=== PATIENT | male | born 1980 | race African-American/Black ===

== ENCOUNTER 2017-01-04 18:42 | Inpatient (IN) | payer OTHER ==
--- NOTE | ~2017-01-04 | DS ---
Unit #: [id number] #: [id number] Patient: CARYL ASTUDILLO [id number] [facility] [address] [place] [address] [id number] MR#: [id number] NAME: CARYL ASTUDILLO ROOM: [facility] Age: 36 Sex: M Admission Date: 01/04/2017 : 1980 Discharge Date: 01/16/2017 Attending Physician: Diya Bhat M.D. Primary Care Physician: Primary Care Physician No DISCHARGE SUMMARY IDENTIFYING DATA Mr. Astudillo is a 26-year-old single male, who was self-referred to the hospital. DISCHARGE DIAGNOSES Psychiatric: Major depressive disorder, recurrent, moderate, with psychosis; cocaine abuse, moderate. Medical: Human immunodeficiency virus. Stressors: Moderate psychosocial stressors. HISTORY OF PRESENT ILLNESS Please see initial psychiatric evaluation for details. PAST PSYCHIATRIC HISTORY Please see initial psychiatric evaluation for details. PAST MEDICAL HISTORY Please see initial psychiatric evaluation for details. HOSPITAL COURSE The patient was [facility] and was oriented to the hospital environment. Routine p.r.n. medications were initiated, and he was started back on his home medications and Celexa and Zyprexa were initiated and he was seen to be exhibiting some acute psychosis and was initially refusing to comply with medication, though he was slowly able to start showing better compliance with improved tolerability and therapeutic response to the medication and as such, it was decided that he will be discharged home and will continue treatment on an outpatient basis. DISCHARGE MEDICATIONS Celexa 20 mg a day for depression and Zyprexa 10 mg at bedtime for psychosis. DISCHARGE CONDITION Stable. PROGNOSIS Fair. Dictated by... Diya Bhat M.D. Unit #: [id number] #: [id number] Patient: CARYL ASTUDILLO IAA/modl TD: 01/16/2017 08:24 JOB #: [id number] DISCHARGE SUMMARY X Diya Bhat MD X DISCHARGE SUMMARY
--- NOTE | ~2017-01-04 | PN ---
Unit #: [id number] #: [id number] Patient: CARYL ASTUDILLO [id number] [facility] [address] [place] [address] [id number] MR#: [id number] NAME: CARYL ASTUDILLO ROOM: P251 Age: 36 Sex: M Admission Date: 01/04/2017 : 1980 Attending Physician: Diya Bhat M.D. Admitting Physician: Diya Bhat M.D. Primary Care Physician: Primary Care Physician Riri MARIE NOTES DATE OF SERVICE: 01/08/2017 SUBJECTIVE Mr. Astudillo is a 36-year-old male, who was seen today and chart was reviewed and the case was discussed with the staff, who reports that the patient has not been doing good as he has been very seclusive to himself and he has been acutely psychotic with bizarre behavior and disorganized thought and speech and unkempt and disheveled and was seclusive to himself, and he has been urinating and defecating in the sink in his room and the whole room smells of fecal matter and it is hard even to get into his room and he had been having difficulty keeping himself clean and following any directions. He also has not been able to carry on any meaningful conversation. MENTAL STATUS EXAMINATION Young male, who was casually dressed with poor personal hygiene, appears to be in no acute distress or discomfort. He was awake and alert with impaired attention and concentration. His mood was anxious with a congruent affect. His speech was slow and restricted in content. His thought processes were disorganized with some looseness of association. His insight and judgment remain significantly impaired. TREATMENT PLAN 1. We will continue him on his current medications and treatment protocol. We will monitor his response to medications and make further adjustments as needed. 2. We will continue to follow up. Dictated by... Magdalena Lundberg/lindsay TD: 01/10/2017 11:22 JOB #: [id number] Unit #: [id number] #: [id number] Patient: CARYL ASTUDILLO PROGRESS NOTES X Diya Bhat MD
--- NOTE | ~2017-01-04 | PN ---
Unit #: [id number] #: [id number] Patient: CARYL ASTUDILLO [id number] [facility] [address] [place] [address] [id number] I MR#: [id number] NAME: CARYL ASTUDILLO ROOM: P251 Age: 36 Sex: M Admission Date: 01/04/2017 : 1980 Attending Physician: Diya Bhat M.D. Admitting Physician: Diya Bhat M.D. Primary Care Physician: Primary Care Physician Riri MARIE NOTES DATE OF SERVICE: 01/10/2017 SUBJECTIVE Mr. Astudillo is a 36-year-old, male, who was seen today and chart was reviewed, and case was discussed with the staff, who reports the patient has been acutely psychotic with bizarre behavior, and was unkempt, disheveled and seclusive to himself and has not been able to participate very much in treatment related activities including group therapy. Meanwhile, he has been taking medications at times and is selectively compliant and therefore has not been able to show an effective therapeutic response. MENTAL STATUS EXAMINATION Young male, who was casually dressed with fair personal hygiene, who appears to be in no acute distress or discomfort. He was awake and alert on interaction with intact orientation. His mood was anxious with a congruent affect. He denies suicidal or homicidal ideation. His insight and judgment remain significantly impaired. TREATMENT PLAN 1. We will continue him on his current medications and treatment protocol. We will monitor his response to medications and make further adjustments as needed. 2. We will continue to follow up. Dictated by... Magdalena Lundberg/lindsay TD: 01/11/2017 02:32 JOB #: [id number] Unit #: [id number] #: [id number] Patient: CARYL ASTUDILLO YOVANNY PROGRESS NOTES X Diya Bhat MD PROGRESS NOTE
--- NOTE | ~2017-01-04 | HP ---
Unit #: [id number] #: [id number] Patient: CARYL ERNANDEZ [id number] [facility] [address] [place] [address] [id number] I MR#: [id number] NAME: CARYL ERNANDEZ ROOM: P266 Age: 36 Sex: M Admission Date: 01/04/2017 : 1980 Attending Physician: Diya Bhat M.D. Admitting Physician: Diya Bhat M.D. Primary Care Physician: Primary Care Physician No HISTORY AND PHYSICAL HISTORY OF PRESENT ILLNESS The patient is a 36-year-old male, who has been admitted to [facility] for suicidal ideations. PAST MEDICAL HISTORY 1. HIV. 2. Alcohol use. 3. Polysubstance abuse. PAST SURGICAL HISTORY 1. Left wrist surgery. 2. Bilateral ankle surgery. 3. Possible stomach surgery. ALLERGIES Haldol. HOME MEDICATIONS 1. Motrin 800 mg p.o. q.8h p.r.n. pain 2. Atovaquone 75/5 mL p.o. daily 3. Triumeq one tablet p.o. daily SOCIAL HISTORY The patient endorses tobacco and occasionally alcohol, he does admit to using crack cocaine, he is homeless. FAMILY HISTORY Medically noncontributory. REVIEW OF SYSTEMS CONSTITUTIONAL: Denies fever or chills. HEENT: Denies any sore throat, ear pain or runny nose. CARDIOVASCULAR: Denies chest pain, irregular heart rhythm or palpitations. CHEST: Denies shortness of breath or cough. No hemoptysis. GASTROINTESTINAL: Denies nausea, vomiting, diarrhea or chronic constipation. ENDOCRINE: Denies history of increased thirst or urination. No recent significant weight loss or gain. GENITOURINARY: Denies dysuria, frequency, or hematuria. SKIN: Denies any rashes. HEMATOLOGIC: Denies increased bleeding or bruising. MUSCULOSKELETAL: Denies any hot, swollen joints. No generalized muscle pain. Unit #: [id number] #: [id number] Patient: CARYL ERNANDEZ NEUROLOGIC: Denies problems with vision or speech. No frequent, severe headaches. No numbness, tingling or weakness in any extremities. Denies loss of bladder or bowel control. PHYSICAL EXAMINATION GENERAL APPEARANCE: The patient is awake, alert, and in no acute distress. VITAL SIGNS: Temperature 98.7, heart rate 86, respirations 18, and blood pressure 142/98. WEIGHT: 150 pounds. HEIGHT: 6 feet 1 inch. HEENT: Head: Normocephalic. The patient does have a blackened right eye. Pupils are equal, round, and reactive. Extraocular movements are intact. No discharge from ears or nares. NECK: Supple. Trachea is midline. HEART: Regular rate and rhythm. LUNGS: Clear. ABDOMEN: Soft and nontender. Nondistended. : Not done. SKIN: Warm, dry, and no unusual rashes or lesions. EXTREMITIES: No clubbing, edema, or cyanosis. NEUROLOGIC: Within normal limits. Cranial Nerves: II through XII: Intact. No focal deficits. Sensory and Motor Function: Grossly normal. Motor: moves all extremities well. Coordination: Gait is normal. Deep Tendon Reflexes: Intact. IMPRESSION Psychiatric admission. RECOMMENDATIONS Psychiatric, per psychiatrist. MEDICAL I see no contraindications to participating in facility's activities. MEDICAL PROGNOSIS Fair. MEDICAL CONDITION Stable. Dictated by... Lakisha Phillips A.P.R.N. AM/alireza TD: 01/05/2017 08:32 JOB #: [id number] Unit #: [id number] #: [id number] Patient: CARYL ERNANDEZ HISTORY AND PHYSICAL X Lakisha Phillips APRN X HISTORY AND PHYSICAL
--- NOTE | ~2017-01-04 | CO ---
Unit #: [id number] #: [id number] Patient: CARYL ERNANDEZ [id number] [place] [address] [id number] I MR#: [id number] NAME: CARYL ERNANDEZ ROOM: P251 Age: 36 Sex: M Admission Date: 01/04/2017 : 1980 Attending Physician: Diya Bhat M.D. Primary Care Physician: Primary Care Physician No Consultation Date: 01/09/2017 CONSULTATION REPORT SUBJECTIVE Caryl is a 36-year-old, admitted to [address] [place] [address] with depression, verbalizing wanting to hurt himself. He has a history of HIV, alcohol abuse, and poly illicit substance use. We have been asked to see him for a "possible UTI." The patient has no complaints of dysuria, urgency, or frequency. He has had no recorded increased temperatures. DIAGNOSTIC STUDIES LABORATORY RESULTS: Admission urinalysis; negative for bacteria with 10 to 25 wbc's. PLAN Plan will be to encourage fluids. No Rx at this time. Dictated by... Carmen Ma P.A.-C. for Magdalena Gonzalez/lindsay TD: 01/11/2017 22:43 JOB #: [id number] CONSULTATION REPORT X Carmen Ma X CONSULTATION REPORT
--- NOTE | ~2017-01-04 | PN ---
Unit #: [id number] #: [id number] Patient: CARYL ASTUDILLO [id number] [facility] [address] [place] [address] [id number] MR#: [id number] NAME: CARYL ASTUDILLO ROOM: P251 Age: 36 Sex: M Admission Date: 01/04/2017 : 1980 Attending Physician: Diya Bhat M.D. Admitting Physician: Diya Bhat M.D. Primary Care Physician: Primary Care Physician Riri MARIE NOTES DATE OF SERVICE: 01/13/2017 SUBJECTIVE Mr. Astudillo is a 36-year-old male with mood disorder and psychosis, who was seen today and chart was reviewed and the case was discussed with the staff. He remains anxious, withdrawn, disorganized, unkempt, and disheveled and he has bizarre behavior and very seclusive to himself and not interacting or socializing very much, though he has not shown any agitation or aggression. Meanwhile, he has been taking the medications and tolerating them fairly well. MENTAL STATUS EXAMINATION Young male, who was casually dressed with fair personal hygiene, who appears to be in no acute distress or discomfort. He was awake and alert with impaired attention and concentration. His mood was anxious with a congruent affect. His speech was slow and restricted in content. His insight and judgment remain significantly impaired. TREATMENT PLAN 1. We will continue him on his current medications and treatment protocol and we will monitor his response to the medications and make further adjustments as needed. 2. We will continue to follow up. Dictated by... Magdalena Lundberg/lindsay TD: 01/13/2017 13:24 JOB #: [id number] [facility] PROGRESS NOTES X Diya Bhat MD PROGRESS NOTE
--- NOTE | ~2017-01-04 | PN ---
Unit #: [id number] #: [id number] Patient: CARYL ASTUDILLO [id number] [facility] [address] [place] [address] [id number] I MR#: [id number] NAME: CARYL ASTUDILLO ROOM: P251 Age: 36 Sex: M Admission Date: 01/04/2017 : 1980 Attending Physician: Diya Bhat M.D. Admitting Physician: Diya Bhat M.D. Primary Care Physician: Primary Care Physician Riri MARIE NOTES DATE OF SERVICE: 01/07/2017 SUBJECTIVE Mr. Astudillo is a 36-year-old male who was seen today and chart was reviewed, and case was discussed with the staff. He has been anxious, disorganized, unkempt, disheveled and was lying in a bed and the whole room was smelling of bad smell and staff informed me that he has been urinating and defecating in his bedroom, and he would not come out, interact, socialize, or take care of his personal hygiene. Meanwhile, he has been taking the medications including Zyprexa which was just started without any tolerability issues. MENTAL STATUS EXAMINATION Young male who was casually dressed with poor personal hygiene, appears to be in no acute distress or discomfort. He was awake and alert with impaired attention and concentration. His mood was anxious with a congruent affect. His speech was slow and restricted in content. He denies any suicidal or homicidal ideations. His insight and judgment remain slightly impaired. TREATMENT PLAN 1. We will continue him on his current medications and treatment protocol. We will monitor his response to make further adjustments as needed. 2. We will continue to follow up. Dictated by... Magdalena Lundberg/austinl TD: 01/09/2017 02:49 JOB #: [id number] Unit #: [id number] #: [id number] Patient: CARYL ASTUDILLO PEAJOSÉ MIGUEL PROGRESS NOTES X Diya Bhat MD X PROGRESS NOTE
--- NOTE | ~2017-01-04 | PN ---
Unit #: [id number] #: [id number] Patient: CARYL ASTUDILLO [id number] [facility] [address] [place] [address] [id number] I MR#: [id number] NAME: CARYL ASTUDILLO ROOM: P251 Age: 36 Sex: M Admission Date: 01/04/2017 : 1980 Attending Physician: Diya Bhat M.D. Admitting Physician: Diya Bhat M.D. Primary Care Physician: Primary Care Physician Riri MARIE NOTES DATE January 15, 2017 DISCUSSION Mr. Astudillo is a 36-year-old male, who was seen today and chart was reviewed and the case was discussed with the staff. He has been anxious, withdrawn, and rather seclusive to himself. Meanwhile, he has been cooperative with the treatment recommendations and he has been taking the medications and tolerating them fairly well. MENTAL STATUS EXAMINATION Young male, who was casually dressed with fair personal hygiene and appears to be in no acute distress or discomfort. He was awake and alert with impaired attention and concentration. His mood was anxious with a congruent affect. His speech is slow and goal-directed. He denies any suicidal or homicidal ideations. His insight and judgment remain slightly impaired. TREATMENT PLAN 1. We will continue him on his current medications and treatment protocol, and will monitor his response to the medications, and make further adjustments as needed. 2. We will continue to followup. Dictated by... Magdalena Lundberg/alireza TD: 01/16/2017 09:50 JOB #: [id number] Unit #: [id number] #: [id number] Patient: CARYL ASTUDILLO PEAJOSÉ MIGUEL PROGRESS NOTES X Diya Bhat MD PROGRESS NOTE
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
--- NOTE | ~2017-01-04 | PN ---
Unit #: [id number] #: [id number] Patient: CARYL ASTUDILLO [id number] [facility] [address] [place] [address] [id number] I MR#: [id number] NAME: CARYL ASTUDILLO ROOM: P251 Age: 36 Sex: M Admission Date: 01/04/2017 : 1980 Attending Physician: Diya Bhat M.D. Admitting Physician: Diya Bhat M.D. Primary Care Physician: Primary Care Physician Riri MARIE NOTES DATE OF SERVICE: 01/12/2017 SUBJECTIVE Mr. Astudillo is a 36-year-old male, who was seen today and chart was reviewed and the case was discussed with the staff. He has been anxious, withdrawn, and rather seclusive to himself and remains acutely psychotic with a bizarre behavior and unable to carry a meaningful conversation. He has not been functioning and has not been doing his ADLs or taking care of his personal hygiene and has been kept in a private room and it has been hard to understand as he mumbles at best and is slow to respond and remains at poor prognosis. At this time, we will maintain him on his current level of precautions. We will monitor his response to treatment interventions and we will make further adjustments as needed. Dictated by... Magdalena Lundberg/lindsay TD: 01/12/2017 12:25 JOB #: [id number] YOVANNY PROGRESS NOTES X Diya Bhat MD PROGRESS NOTE
--- NOTE | ~2017-01-04 | PN ---
Unit #: [id number] #: [id number] Patient: CARYL ASTUDILLO [id number] [facility] [address] [place] [address] [id number] I MR#: [id number] NAME: CARYL ASTUDILLO ROOM: P251 Age: 36 Sex: M Admission Date: 01/04/2017 : 1980 Attending Physician: Diya Bhat M.D. Admitting Physician: Diya Bhat M.D. Primary Care Physician: Primary Care Physician Riri MARIE NOTES DATE 01/06/2017 DISCUSSION Mr. Caryl Astudillo is a 36-year-old, male who was seen today and chart was reviewed and case was discussed with the staff. He has been anxious, agitated, and staff report that he has been exhibiting acute psychosis with bizarre behavior. The patient was unable to carry on any meaningful conversation was mumbling with word salad and unable to be comprehended and staff reports that he has been urinated in the sink and has been showing poor personal hygiene and has been having difficulty following directions. Celexa was started yesterday as an antidepressant. However, it appears he has issues beyond just depression and as such we will recommend initiating Zyprexa as an antipsychotic. We will monitor his response and make further adjustments as needed. Dictated by... Magdalena Lundberg/matty TD: 01/09/2017 03:46 JOB #: [id number] YOVANNY PROGRESS NOTES X Diya Bhat MD PROGRESS NOTE
--- NOTE | ~2017-01-04 | PN ---
Unit #: [id number] #: [id number] Patient: CARYL ASTUDILLO [id number] [facility] [address] [place] [address] [id number] I MR#: [id number] NAME: CARYL ASTUDILLO ROOM: P251 Age: 36 Sex: M Admission Date: 01/04/2017 : 1980 Attending Physician: Diya Bhat M.D. Admitting Physician: Diya Bhat M.D. Primary Care Physician: Primary Care Physician Riri MARIE NOTES DATE OF SERVICE: 01/09/2017 SUBJECTIVE Mr. Astudillo is a 36-year-old male who was seen today and chart was reviewed and case was discussed with the staff. He has been anxious, withdrawn, and rather seclusive to himself. Meanwhile, he appears to be showing improvement and has not been able to carry better conversation with me. Meanwhile, he has been cooperative with treatment recommendations and has been taking Zyprexa, though after much education and encouragement, he was willing to take the medication. MENTAL STATUS EXAMINATION Young male, who was casually dressed with marginal personal hygiene and appears to be in slight distress and discomfort. He was awake and alert with impaired attention and concentration. His mood was anxious with a congruent affect. He denies any suicidal or homicidal ideation. His thought process was disorganized with some looseness of association and paranoid ideation. His insight and judgment remain significantly impaired. TREATMENT PLAN 1. We will continue him on his current medications and treatment protocol. We will monitor his response and make further adjustments as needed. 2. We will continue to follow up. Dictated by... Magdalena Lundberg/lindsay TD: 01/11/2017 07:37 JOB #: [id number] Unit #: [id number] #: [id number] Patient: CARYL ASTUDILLO GAURAVJOSÉ MIGUEL PROGRESS NOTES X Diya Bhat MD PROGRESS NOTE
--- NOTE | ~2017-01-04 | PN ---
Unit #: [id number] #: [id number] Patient: CARYL ASTUDILLO [id number] [facility] [address] [place] [address] [id number] MR#: [id number] NAME: CARYL ASTUDILLO ROOM: P251 Age: 36 Sex: M Admission Date: 01/04/2017 : 1980 Attending Physician: Diya Bhat M.D. Admitting Physician: Diya Bhat M.D. Primary Care Physician: Primary Care Physician Riri MARIE NOTES DATE January 11, 2017 DISCUSSION Mr. Astudillo is a 36-year-old male, who was seen today and chart was reviewed and the case was discussed with the staff. He has been anxious, withdrawn, and rather seclusive to himself. Meanwhile, he has been cooperative with the treatment recommendations and he has been taking the medications and tolerating them fairly well. MENTAL STATUS EXAMINATION Young male, who was casually dressed with fair personal hygiene and appears to be in no acute distress or discomfort. He was awake and alert with intact orientation. His mood is anxious with a congruent affect. He denies any suicidal or homicidal ideations. His insight and judgment remain slightly impaired. TREATMENT PLAN 1. We will continue him on his current medications and treatment protocol, and will monitor his response to the medications, and make further adjustments as needed. 2. We will continue to followup. Dictated by... Magdalena Lundberg/alireza TD: 01/12/2017 12:25 JOB #: [id number] Unit #: [id number] #: [id number] Patient: CARYL ASTUDILLO YOVANNY PROGRESS NOTES X Diya Bhat MD PROGRESS NOTE
--- NOTE | ~2017-01-04 | PN ---
Unit #: [id number] #: [id number] Patient: CARYL ASTUDILLO [id number] [facility] [address] [place] [address] [id number] I MR#: [id number] NAME: CARYL ASTUDILLO ROOM: P251 Age: 36 Sex: M Admission Date: 01/04/2017 : 1980 Attending Physician: Diya Bhat M.D. Admitting Physician: Diya Bhat M.D. Primary Care Physician: Primary Care Physician No YOVANNY PROGRESS NOTES DATE OF SERVICE: 01/14/2017 SUBJECTIVE Mr. Astudillo is a 36-year-old male who was seen today and chart was reviewed and case was discussed with the staff. He has been anxious, withdrawn, and rather seclusive to himself. Meanwhile, he has been cooperative with treatment recommendations and has been coming to therapy groups and has been participating. MENTAL STATUS EXAMINATION Young male who was casually dressed with fair personal hygiene, appears to be in no acute distress or discomfort. He was awake and alert with intact orientation. His mood was anxious with a congruent affect. He denies any suicidal or homicidal ideations. His insight and judgment remain slightly impaired. TREATMENT PLAN 1. We will continue him on his current treatment protocol. We will monitor his response to the medications and make further adjustments as needed. 2. We will continue to follow up. Dictated by... Magdalena Lundberg/lindsay TD: 01/15/2017 13:02 JOB #: [id number] [facility] PROGRESS NOTES X Diya Bhat MD PROGRESS NOTE
[2017-01-05 09:27] LABS: BASOPHIL% 0.2 % (0-2.5); EOSINOPHIL% 0.6 % (0.0-7.0); HEMATOCRIT 39.9 % (38.0-50.0); HEMOGLOBIN 13.2 gm/dL (13.0-16.0); LYMPHOCYTE# 1.7 X10e3 (1.0-3.5); MEAN CELL VOLUME 87.3 FL (83-96); MEAN CORPUSCULAR HEMOGLOBIN 28.9 PG (28-34); MEAN CORPUSCULAR HGB CONC 33.1 g/dL (30-36); MEAN PLATELET VOLUME 9.1 FL (6.5-11.5); MONOCYTE# 0.3 X10e3 (0-1.0); MONOCYTE% 6.5 % (3.0-12.0); NEUTROPHIL# 1.9 X10e3 (1.5-7.1); NEUTROPHIL% 48.7 % (40-75); PLATELET COUNT 157 X10e3 (140-420); RED BLOOD COUNT 4.57 X10e (3.90-5.60); RED CELL DISTRIBUTION WIDTH 15.9 % (11.0-15.5); WHITE BLOOD COUNT 3.9 X10e3 (4.0-10.5)
[2017-01-05 09:34] LABS: DIFF IND NO
[2017-01-05 09:51] LABS: THYROID STIMULATING HORMONE 0.53 uIU/ml (0.34-5.60)
[2017-01-05 09:58] LABS: FREE THYROXIN (T4) 0.89 ng/dL (0.58-1.64)
[2017-01-05 10:05] LABS: ALBUMIN SERUM 4.2 g/dL (3.5-5.0); BILIRUBIN,TOTAL 0.4 mg/dL (0.2-2.0); BUN/CREATININE RATIO 11.42; CALCIUM SERUM 9.9 mg/dL (8.4-10.2); CREATININE SERUM 2.1 mg/dL (0.6-1.4); GLOM FILT RATE Estimated 45.7 mL/min (>60); POTASSIUM 4.6 mmol/L (3.5-5.1); PROTEIN TOTAL SERUM 7.1 g/dL (6.0-8.3)
[2017-01-09 12:35] LABS: URINE APPEARANCE CLEAR; URINE BILIRUBIN NEG (NEG); URINE BLOOD NEG (NEG); URINE COLOR YELLOW; URINE GLUCOSE NEG (NEG); URINE KETONE NEG (NEG); URINE LEUKOCYTE ESTERASE 1+ (NEG); URINE NITRATE NEG (NEG); URINE PROTEIN 2+ (NEG); URINE SPECIFIC GRAVITY 1.021 (1.003-1.035); URINE UROBILINOGEN 0.2 MG/DL (NEG)
[2017-01-09 12:37] LABS: U HYALINE CASTS AUWI 0-2 /[LPF]; URBCS1 AUWI 0-2 /[HPF] (0-2); URINE BACTERIA AUWI NEG (NEGATIVE); URINE SQUAMOUS EPITHELIAL CELL FEW /[HPF]
[2017-01-09 13:01] LABS: AMPHETAMINE NEG (NEG); BARBITURATES NEG (NEG); BENZODIAZEPINES NEG (NEG); COCAINE NEG (NEG); MARIJUANA NEG (NEG); OPIATES NEG (NEG); TRICYCLIC ANTIDEPRESSANTS NEG (NEG); U METHADONE NEG (NEG)
== END 2017-01-16 11:30 | disposition home or self-care (01) | DRG 885 ==
LOC: P2L 18:42 → POF 01-12 15:08 → P2L 01-12 15:18
PROVIDERS: Psychiatry & Neurology Psychiatry
DX: F33.1 Major depressive disorder, recurrent, moderate (principal); F14.10 Cocaine abuse, uncomplicated; Z21 Asymptomatic human immunodeficiency virus [HIV] infection status
CPT/HCPCS: 80053; 80307; 81003; 84439; 84443; 85025

== ENCOUNTER 2017-05-03 05:00 | Inpatient (IN) | payer OTHER ==
--- NOTE | ~2017-05-03 | PN ---
Unit #: [id number] #: [id number] Patient: CARYL ASTUDILLO [id number] [facility] [address] [place] [address] [id number] I MR#: [id number] NAME: CARYL ASTUDILLO ROOM: [facility] Age: 36 Sex: M Admission Date: 05/03/2017 : 1980 Attending Physician: Diya Bhat M.D. Admitting Physician: Diya Bhat M.D. Primary Care Physician: Primary Care Physician Riri MARIE NOTES DATE May 06, 2017 DISCUSSION Mr. Astudillo is a 36-year-old male, who was seen today and chart was reviewed and the case was discussed with the staff. He has been anxious, withdrawn, and rather seclusive to himself. Meanwhile, he has been cooperative with the treatment recommendations and he has been taking the medications and tolerating them fairly well with no reported side effects. MENTAL STATUS EXAMINATION Young male, who was casually dressed with marginal personal hygiene and appears to be in no acute distress or discomfort. He was awake and alert with impaired attention and concentration. His mood is anxious with a congruent affect. His speech is slow and restricted in content. His thought processes are disorganized with some looseness of associations. His insight and judgment remain significantly impaired. TREATMENT PLAN 1. A We will continue him on his current medications and treatment protocol, and will monitor his response to the medications, and make further adjustments as needed. 2. We will continue to followup. Dictated by... Magdalena Lundberg/alireza TD: 05/07/2017 10:56 JOB #: [id number] Unit #: [id number] #: [id number] Patient: CARYL ASTUDILLO PROGRESS NOTES Page 1 of 1 X Diya Bhat MD PROGRESS NOTE
--- NOTE | ~2017-05-03 | PN ---
Unit #: [id number] #: [id number] Patient: CARYL ASTUDILLO [id number] [facility] [address] [place] [address] [id number] I MR#: [id number] NAME: CARYL ASTUDILLO ROOM: [facility] Age: 36 Sex: M Admission Date: 05/03/2017 : 1980 Attending Physician: Diya Bhat M.D. Admitting Physician: Diya Bhat M.D. Primary Care Physician: Primary Care Physician Riri MARIE NOTES DATE OF SERVICE: 05/04/2017 SUBJECTIVE Mr. Astudillo is a 36-year-old male, who was seen today and chart was reviewed and case was discussed with the staff. He has been anxious, withdrawn, unkempt, disorganized, and unable to carry on any meaningful conversation and appears to be quite compromised. Meanwhile, he has been taking medications and tolerating them fairly well with no reported side effects. MENTAL STATUS EXAMINATION Young male who was casually dressed with marginal personal hygiene, appears to be in no acute distress or discomfort. He was awake and alert with impaired attention and concentration. His mood was anxious with a congruent affect. His speech was slow and tangential. His thought processes were disorganized with some looseness of associations and paranoid ideations and delusional behavior. His insight and judgment remain significantly impaired. TREATMENT PLAN 1. We will continue on his current medications and treatment protocol. We will monitor his response to the medications and make further adjustments as needed. 2. We will continue to follow up. Dictated by... Magdalena Lundberg/lindsay TD: 05/04/2017 22:44 JOB #: [id number] Unit #: [id number] #: [id number] Patient: CARYL ASTUDILLO GAURAVJOSÉ MIGUEL CYNTHIA NOTES Page 1 of 1 X Diya Bhat MD PROGRESS NOTE
--- NOTE | ~2017-05-03 | PN ---
Unit #: [id number] #: [id number] Patient: CARYL ASTUDILLO [id number] [facility] [address] [place] [address] [id number] I MR#: [id number] NAME: CARYL ASTUDILLO ROOM: [facility] Age: 36 Sex: M Admission Date: 05/03/2017 : 1980 Attending Physician: Diya Bhat M.D. Admitting Physician: Diya Bhat M.D. Primary Care Physician: Primary Care Physician Riri HAIRSTON PROGRESS NOTES DATE May 07, 2017 DISCUSSION Mr. Astudillo is a 36-year-old male, who was seen today and chart was reviewed and the case was discussed with the staff. The patient has been anxious, withdrawn, unkept, disheveled, disorganized, and seclusive to himself, and has not been functioning very well and has been exhibiting significant negative disorder of psychosis. MENTAL STATUS EXAMINATION Young male, who was casually dressed with marginal personal hygiene and appears to be in no acute distress or discomfort. He was awake and alert with impaired attention and concentration. His mood is anxious with a congruent affect. His speech is slow and restricted in content. His thought processes are disorganized with some looseness of associations and paranoid ideations. His insight and judgment remain significantly impaired. TREATMENT PLAN 1. We will continue him on his current medications and treatment protocol, and will monitor his response to the medications, and make further adjustments as needed. 2. We will continue to followup. Dictated by... Magdalena Lundberg/alireza TD: 05/08/2017 09:23 JOB #: [id number] Unit #: [id number] #: [id number] Patient: CARYL ASTUDILLO PROGRESS NOTES Page 1 of 1 X Diya Bhat MD PROGRESS NOTE
--- NOTE | ~2017-05-03 | PN ---
Unit #: [id number] #: [id number] Patient: CARYL ASTUDILLO [id number] [facility] [address] [place] [address] [id number] I MR#: [id number] NAME: CARYL ASTUDILLO ROOM: 15 Age: 36 Sex: M Admission Date: 05/03/2017 : 1980 Attending Physician: Diya Bhat M.D. Admitting Physician: Diya Bhat M.D. Primary Care Physician: Primary Care Physician Riri HAIRSTON PROGRESS NOTES DATE May 08, 2017 DISCUSSION Mr. Astudillo is a 36-year-old male, who was seen today and chart was reviewed and the case was discussed with the staff. He has been anxious, withdrawn, and rather seclusive to himself. Meanwhile, he has been cooperative with the treatment recommendations and she has been tolerating them fairly. MENTAL STATUS EXAMINATION Young male, who was casually dressed with fair personal hygiene and appears to be in no acute distress or discomfort. He was awake and alert on interaction with intact orientation. His mood is anxious with a congruent affect. He denies any suicidal or homicidal ideations. His insight and judgment remain slightly impaired. TREATMENT PLAN 1. We will continue him on his current medications and treatment protocol, and will monitor his response to the medications, and make further adjustments as needed. 2. We will continue to followup. Dictated by... Magdalena Lundberg/alireza TD: 05/09/2017 11:12 JOB #: [id number] Unit #: [id number] #: [id number] Patient: CARYL ASTUDILLO PROGRESS NOTES Page 1 of 1 X Diya Bhat MD PROGRESS NOTE
--- NOTE | ~2017-05-03 | PA ---
Unit #: [id number] #: [id number] Patient: [facility] [id number] [facility] [address] [place] [address] [id number] I MR#: [id number] NAME: CARYL ASTUDILLO ROOM: P115 Age: 36 Sex: M Admission Date: 05/03/2017 : 1980 Date of Assessment: 05/03/2017 Attending Physician: Diya Bhat M.D. Admitting Physician: Diya Bhat M.D. Primary Care Physician: Primary Care Physician No PSYCHIATRIC ASSESSMENT DATE OF SERVICE 05/03/2017. IDENTIFYING DATA Mr. Astudillo is a 36-year-old single male, who is a resident of [place], [place], and is known to us from previous encounter and was transferred to us from [facility] Emergency Room in an acute psychotic state. CHIEF COMPLAINT "The magnetic forces made me come in." HISTORY OF PRESENT ILLNESS Mr. Astudillo is a 36-year-old male, who was taken to the emergency room stating that the magnetic forces made him come in and that he is having thoughts "bad ones." He reports that he is thinking of killing himself or anyone else that bothers him and that people keep following him and bothering him, and hospital staff reports that the patient was talking about being upset because his x-ray showed his skin, and staff reports that he was not oriented and was presenting with an altered mental status and was completely out of touch with reality and was having thoughts of wanting to kill himself or kill others and was seen to be acutely psychotic, compromised, and a danger to self and others and as such, a recommendation for inpatient level of care for safety and stabilization was made and the patient was transferred to us. SUBSTANCE ABUSE HISTORY The patient reports occasional experimentation with alcohol, cannabis, and cocaine. PAST PSYCHIATRIC HISTORY The patient has [facility] a [facility] and has been diagnosed and treated with mood disorder and psychosis, and review of the medical records indicate that he is supposed to be on Celexa and Zyprexa, but has been noncompliant with medications and as such, has been decompensating. PAST MEDICAL HISTORY The patient's medical history is insignificant. ALLERGIES Haldol. Unit #: [id number] #: [id number] Patient: CARYL ASTUDILLO PERSONAL AND SOCIAL HISTORY A 36-year-old male, who reports that he is single, unemployed, and essentially homeless and has poor social support system. MENTAL STATUS EXAMINATION Young male, who was casually dressed with fair personal hygiene, appears to be in no acute distress or discomfort. He was awake and alert on interaction with intact orientation to time, place, and person. His mood was anxious and depressed with a congruent affect. His speech was slow and restricted in content. His thought processes were disorganized with some looseness of associations and flight of ideas and paranoid ideations and delusional behavior. His insight and judgment remain significantly impaired. DIAGNOSTIC IMPRESSION Psychiatric: Schizoaffective disorder, bipolar type, most recent episode depressed, recurrent, moderate, with psychosis. Medical: None. Stressors: Moderate psychosocial stressors. TREATMENT PLAN 1. The patient has presented with a history of mood disorder and psychosis and has been decompensating and will need inpatient hospitalization for safety and stabilization. We will start him back on his home medications and we will adjust the medications and monitor response. 2. Supportive therapy was provided to the patient. 3. Safe, structured, and nourishing environment will be provided. ESTIMATED LENGTH OF STAY 5 to 7 days. ABILITY TO HELP SELF Limited. WILLINGNESS TO HELP SELF The patient appears to be willing to help self. STRENGTHS 1. Communicative. 2. Cooperative. PROBLEMS 1. Chronic dysphoric symptoms. 2. Poor social support system. DISCHARGE CRITERIA This will be contingent upon the patient's ability to show resolution of his depression and anxiety and psychosis and his ability to stay safe to himself, particularly after discharge from the hospital. Dictated by... Diya Bhat M.D. RICHARD/lindsay TD: 05/04/2017 19:14 Unit #: [id number] #: [id number] Patient: CARYL ASTUDILLO JOB #: [id number] PSYCHIATRIC ASSESSMENT Page 1 of 1 X Diya Bhat MD PSYCHIATRIC ASSESSMENT
--- NOTE | ~2017-05-03 | DS ---
Unit #: [id number] #: [id number] Patient: [facility] [id number] [facility] [address] [place] [address] [id number] I MR#: [id number] NAME: CARYL ASTUDILLO ROOM: 15 Age: 37 Sex: M Admission Date: 05/03/2017 : 1980 Discharge Date: 05/09/2017 Attending Physician: Diya Bhat M.D. Primary Care Physician: Primary Care Physician No DISCHARGE SUMMARY IDENTIFYING DATA Mr. Astudillo is a 36-year-old male, who is a resident of [place], [place], and was transferred to us through the emergency room. DISCHARGE DIAGNOSES Psychiatric: Bipolar disorder, most recent episode depressed, recurrent, moderate, with psychosis. Medical: Human immunodeficiency virus. Stressors: Moderate psychosocial stressors. HISTORY OF PRESENT ILLNESS Please see initial psychiatric evaluation for details. PAST PSYCHIATRIC HISTORY Please see initial psychiatric evaluation for details. PAST MEDICAL HISTORY Please see initial psychiatric evaluation for details. HOSPITAL COURSE The patient [facility] and was oriented to the hospital environment. Routine p.r.n. medications were initiated, and he was started back on his home medications including his Zyprexa and was closely monitored. He was taking the medications regularly and was tolerating them fairly well and was able to show a decent and therapeutic response with improvement in depression and psychosis and was not seen to be a danger to self or anyone else and was willing to go home and was willing to continue treatment on an outpatient basis, and as such, it was decided that he will be discharged home and will continue treatment on an outpatient basis. DISCHARGE CONDITION Stable. PROGNOSIS Fair. Dictated by... Magdalena Lundberg/uastinl Unit #: [id number] #: [id number] Patient: CARYL ASTUDILLO TD: 05/30/2017 13:17 JOB #: [id number] DISCHARGE SUMMARY Page 1 of 1 X Diya Bhat MD X DISCHARGE SUMMARY
--- NOTE | ~2017-05-03 | PN ---
Unit #: [id number] #: [id number] Patient: CARYL ASTUDILLO [id number] [facility] [address] [place] [address] [id number] I MR#: [id number] NAME: CARYL ASTUDILLO ROOM: P115 Age: 36 Sex: M Admission Date: 05/03/2017 : 1980 Attending Physician: Diya Bhat M.D. Admitting Physician: Diya Bhat M.D. Primary Care Physician: Primary Care Physician Riri MARIE NOTES DATE 05/05/2017 DISCUSSION Mr. Astudillo is a 36-year-old male with mood disorder and psychosis who was seen today and chart was reviewed and case was discussed with the staff. He has been anxious, withdrawn, disorganized and rather seclusive to himself and has been extremely unkempt, disheveled with significant body odor and has been kept in private room and has not been taking care of his personal hygiene, neither does he appear to be participating in any treatment activities. He has having some significant thought blocking and paranoia and as such remains in acute psychosis. Will recommend maintaining him on his current treatment recommendations, level of precautions. Will monitor his response and make further adjustments as needed. Dictated by... Magdalena Lundberg/kristin TD: 05/05/2017 17:28 JOB #: [id number] YOVANNY PROGRESS NOTES Page 1 of 1 X Diya Bhat MD PROGRESS NOTE
--- NOTE | ~2017-05-03 | PN ---
Unit #: [id number] #: [id number] Patient: CARYL ASTUDILLO [id number] [facility] [address] [place] [address] [id number] MR#: [id number] NAME: CARYL ASTUDILLO ROOM: 15 Age: 36 Sex: M Admission Date: 05/03/2017 : 1980 Attending Physician: Diya Bhat M.D. Admitting Physician: Diya Bhat M.D. Primary Care Physician: Primary Care Physician Riri HAIRSTON PROGRESS NOTES DATE 05/09/2017 DISCUSSION Mr. Astudillo is a 36-year-old, male who was seen today and chart was reviewed and case was discussed with the staff. He remains anxious, withdrawn, depressed and unkempt, disheveled, disorganized and unable to carry on any meaningful conversation. Meanwhile, he has been taking medications and tolerating them fairly well with no reported side effects. MENTAL STATUS EXAM Young male who was casually dressed with marginal personal hygiene, appears to be in no acute distress or discomfort. He was awake and alert with impaired attention and concentration. His mood was anxious with congruent affect. His speech was slow and restricted in content. His thought processes were disorganized with some looseness of associations and paranoid ideations. His insight and judgement remains significantly impaired. TREATMENT PLAN 1. We will continue him on his current medications and treatment protocol. We will monitor his response to the medication and make further adjustments as needed. 2. We will continue to follow up. Dictated by... Magdalena Lundberg/matty TD: 05/09/2017 20:21 JOB #: [id number] Unit #: [id number] #: [id number] Patient: CARYL ASTUDILLO PROGRESS NOTES Page 1 of 1 X Diya Bhat MD PROGRESS NOTE
--- NOTE | ~2017-05-03 | HP ---
Unit #: [id number] #: [id number] Patient: CARYL ERNANDEZ [id number] [place] [address] [id number] I MR#: [id number] NAME: CARYL ERNANDEZ ROOM: P115 Age: 36 Sex: M Admission Date: 05/03/2017 : 1980 Attending Physician: Diya Bhat M.D. Admitting Physician: Diya Bhat M.D. Primary Care Physician: Primary Care Physician No HISTORY AND PHYSICAL HISTORY OF PRESENT ILLNESS Caryl is a 36 year old admitted to [address] [place] [address] with psychotic behavior. He has had other admissions to this facility. PAST MEDICAL HISTORY HIV. PAST SURGICAL HISTORY 1. Left wrist. 2. Bilateral ankles. 3. Stomach (?). ALLERGIES Haldol. SOCIAL HISTORY Smokes 1 pack per day. Drinks alcohol on occasion. Admits to a long history of illicit substance abuse. FAMILY HISTORY Medically noncontributory. REVIEW OF SYSTEMS CONSTITUTIONAL: No fever or chills. HEENT: Denies any sore throat, ear pain or runny nose. CARDIOVASCULAR: Denies chest pain, irregular heart rhythm or palpitations. CHEST: Denies shortness of breath or cough. No hemoptysis. GASTROINTESTINAL: Denies nausea, vomiting, diarrhea or chronic constipation. ENDOCRINE: Denies history of increased thirst or urination. No recent significant weight loss or gain. GENITOURINARY: Denies dysuria, frequency, or hematuria. SKIN: Denies any rashes. HEMATOLOGIC: Denies history of increased bleeding or bruising. MUSCULOSKELETAL: Denies any hot, swollen joints. No generalized muscle pain. NEUROLOGIC: Denies problems with vision or speech. No frequent, severe headaches. No numbness, tingling or weakness in any extremities. Denies loss of bladder or bowel control. CURRENT MEDICATIONS 1. Celexa 20 mg daily. 2. Zyprexa 10 mg q.h.s. Unit #: [id number] #: [id number] Patient: CARYL ERNANDEZ 3. Thorazine p.r.n. 4. Milk of Magnesia p.r.n. 5. Maalox p.r.n. 6. Tylenol p.r.n. 7. Nicotine patch 14 mg daily. PHYSICAL EXAMINATION GENERAL: Alert, well-nourished, in no apparent distress. VITAL SIGNS: Blood pressure 142/100, heart rate 80, respirations 16, temperature 98.6. WEIGHT: 150. HEIGHT: 6 feet 1 inch. SKIN: Warm and dry without rash or lesion. HEENT: Normocephalic. TMs not viewed. Oral and nasal passages clear. Conjunctivae clear. PERRLA. EOMs intact. NECK: Supple without lymphadenopathy or thyromegaly. HEART: Regular rate and rhythm without murmur. LUNGS: Clear. ABDOMEN: Soft, nontender. : Not done. EXTREMITIES: No evidence of cyanosis, clubbing or edema. Moves all without focal deficit. NEUROLOGICAL: Grossly within normal limits. Cranial Nerves: II: Visual lee are intact. III, IV AND : Extraocular movements are intact. Pupils are equal, round and reactive to light. V: Facial sensation is grossly normal. VII: Facial movements and expression are normal. VIII: Auditory acuity grossly intact. IX, X: Uvula is midline. Phonation is normal. XI: Patient shrugs shoulders and turns head normally. XII: Tongue protrudes in the midline. Sensory and Motor Function: Sensory and motor sensation is grossly normal. Motor: moves all extremities well. Coordination: Gait is normal. Deep Tendon Reflexes: Intact. IMPRESSION Psychiatric admission. RECOMMENDATIONS PSYCHIATRIC: Per psychiatrist. MEDICAL: See no contraindication to participate in facility's activities. MEDICAL PROGNOSIS Good. MEDICAL CONDITION Stable. Dictated by... Carmen Ma P.A.-C. for Magdalena Gonzalez/kristin TD: 05/03/2017 20:39 JOB #: [id number] Unit #: [id number] #: [id number] Patient: CARYL ERNANDEZ HISTORY AND PHYSICAL Page 1 of 1 X Carmen Ma HISTORY AND PHYSICAL
== END 2017-05-09 13:00 | disposition left against medical advice (07) | DRG 885 ==
LOC: P1S 11:30
DX: F25.0 Schizoaffective disorder, bipolar type (principal); Z21 Asymptomatic human immunodeficiency virus [HIV] infection status; F17.210 Nicotine dependence, cigarettes, uncomplicated; Z88.8 Allergy status to other drugs, medicaments and biological substances

== ENCOUNTER 2017-06-03 16:00 | Inpatient (IN) | payer OTHER ==
--- NOTE | ~2017-06-03 | PN ---
Unit #: [id number] #: [id number] Patient: CARYL ASTUDILLO [id number] [facility] [address] [place] [address] [id number] MR#: [id number] NAME: CARYL ASTUDILLO ROOM: 14 Age: 37 Sex: M Admission Date: 06/03/2017 : 1980 Attending Physician: Diya Bhat M.D. Admitting Physician: Diya Bhat M.D. Primary Care Physician: Primary Care Physician Riri HAIRSTON PROGRESS NOTES DATE 06/06/2017 DISCUSSION Mr. Astudillo is a 37-year-old male who was seen today and chart was reviewed and case was discussed with the staff. He has been anxious, withdrawn and rather seclusive to himself and has been pacing the hallways and has been agitated and irritable. Meanwhile, he has been taking the medications and tolerating them fairly well with no reported side effects. MENTAL STATUS EXAMINATION Young male who was casually dressed with fair personal hygiene and appears to be in no acute distress or discomfort. He was awake and alert on interaction with intact orientation. His mood was anxious with congruent affect. His speech is slow and restricted in content. He denies any suicidal or homicidal ideation. His insight and judgement remains slightly impaired. TREATMENT PLAN 1. Will continue on his current medications and treatment protocol. Will monitor his response to the medications and make further adjustments as needed. 2. Will continue to follow up. Dictated by... Magdalena Lundberg/kristin TD: 06/06/2017 18:24 JOB #: [id number] Unit #: [id number] #: [id number] Patient: CARYL ASTUDILLO PROGRESS NOTES Page 1 of 1 X Diya Bhat MD PROGRESS NOTE
--- NOTE | ~2017-06-03 | PN ---
Unit #: [id number] #: [id number] Patient: CARYL ASTUDILLO [id number] [facility] [address] [place] [address] [id number] I MR#: [id number] NAME: CARYL ASTUDILLO ROOM: 14 Age: 37 Sex: M Admission Date: 06/03/2017 : 1980 Attending Physician: Diya Bhat M.D. Admitting Physician: Diya Bhat M.D. Primary Care Physician: Primary Care Physician Riri MARIE NOTES DATE 06/05/2017 DISCUSSION Mr. Astudillo is a 37-year-old, male with mood disorder and psychosis who was seen today and chart was reviewed and case was discussed with the staff. He remains quite compromised as he has been kept in a private room and was seen to be anxious, withdrawn, unkempt, disheveled, laying on his bed with urine container right next to him and quite compromised personal hygiene and paper rolled inserted into his ears and was unable to carry on meaning conversation and he reports that he has no place and no one to go to outside of the hospital. Meanwhile, he has been taking the medication and tolerating them fairly well with no reported side effects. MENTAL STATUS EXAM Young male who was casually dressed with marginal personal hygiene, appears to be in no acute distress or discomfort. He was awake and alert with impaired attention and concentration. His mood was anxious with congruent affect. His speech was slow and tangential. His thought processes were disorganized with some looseness of associations and paranoid ideations. His insight and judgement remains significantly impaired. TREATMENT PLAN 1. We will continue him on his current medications and treatment protocol. We will monitor his response to the medication and make further adjustments as needed. 2. We will continue to follow up. Dictated by... Magdalena Lundberg/matty TD: 06/05/2017 21:55 JOB #: [id number] Unit #: [id number] #: [id number] Patient: CARYL ASTUDILLO PROGRESS NOTES Page 1 of 1 X Home,Diya DOUGLASS X PROGRESS NOTE
--- NOTE | ~2017-06-03 | PN ---
Unit #: [id number] #: [id number] Patient: CARYL ASTUDILLO [id number] [facility] [address] [place] [address] [id number] I MR#: [id number] NAME: CARYL ASTUDILLO ROOM: 14 Age: 37 Sex: M Admission Date: 06/03/2017 : 1980 Attending Physician: Diya Bhat M.D. Admitting Physician: Diya Bhat M.D. Primary Care Physician: Primary Care Physician Riri MARIE NOTES DATE OF SERVICE 06/07/2017 DISCUSSION Mr. Astudillo is a 37-year-old male who was seen today. Chart was reviewed and case was discussed with the staff. He has been anxious, withdrawn, and rather seclusive to himself. Meanwhile, he has been cooperative with treatment recommendations and has been taking the medications and tolerating them fairly well with no reported side effects. MENTAL STATUS EXAMINATION Young male who is casually dressed with fair personal hygiene, appears to be in no acute distress or discomfort. He was awake and alert on interaction with intact orientation. His mood is anxious and depressed with congruent affect. His speech is slow and goal-directed. He denies any suicidal or homicidal ideations. His insight and judgment remain slightly impaired. TREATMENT PLAN 1. We will continue him on his current medications and treatment protocol. We will monitor his response to the medications and make further adjustments as needed. 2. We will continue to follow up. Dictated by... Magdalena Lundberg/dank TD: 06/07/2017 08:57 JOB #: [id number] Unit #: [id number] #: [id number] Patient: CARYL ASTUDILLO PROGRESS NOTES Page 1 of 1 X Diya Bhat MD PROGRESS NOTE
--- NOTE | ~2017-06-03 | DS ---
Unit #: [id number] #: [id number] [facility]: [facility] [id number] [facility] [address] [place] [address] [id number] I MR#: [id number] NAME: CARYL ASTUDILLO ROOM: P114 Age: 37 Sex: M Admission Date: 06/03/2017 : 1980 Discharge Date: 06/08/2017 Attending Physician: Diya Bhat M.D. Primary Care Physician: Primary Care Physician No DISCHARGE SUMMARY IDENTIFYING DATA Mr. Astudillo is a 37-year-old single male who was a resident of [place], [place] and is known to us from previous encounter and was self-referred to the hospital. HISTORY OF PRESENT ILLNESS Please see initial psychiatric evaluation. PSYCHIATRIC HISTORY Please see initial psychiatric evaluation. PAST MEDICAL HISTORY Please see initial psychiatric evaluation. HOSPITAL COURSE [facility] and was oriented to the hospital environment. Routine p.r.n. medications were initiated and he was started back on his home medications including his Risperdal and Celexa and was closely monitored. He was taking medications regularly and was tolerating them fairly well and was able to show a recent therapeutic response with improvement in psychosis and agitation and aggression and as such it was decided that he will be discharged home. Will continue treatment on outpatient basis. DISCHARGE DIAGNOSES PSYCHIATRIC: 1. Schizoaffective disorder, bipolar type, most recent episode depressed, recurrent, moderate with psychosis. 2. Cocaine dependence, moderate. 3. Benzodiazepine abuse, moderate. MEDICAL: HIV. STRESSORS: Mild psychosocial stressors. DISCHARGE MEDICATIONS 1. Risperdal 1 mg b.i.d. and Risperdal 2 mg at bedtime for psychosis. 2. Celexa 20 mg daily for depression. CONDITION AT DISCHARGE Stable. PROGNOSIS Unit #: [id number] #: [id number] Patient: CARYL ASTUDILLO Fair. Dictated by... Diya Bhat M.D. IAA/yarelish TD: 06/09/2017 15:44 JOB #: [id number] DISCHARGE SUMMARY Page 1 of 1 X Diya Bhat MD DISCHARGE SUMMARY
--- NOTE | ~2017-06-03 | HP ---
Unit #: [id number] #: [id number] Patient: CARYL ERNANDEZ [id number] [facility] [address] [place] [address] [id number] I MR#: [id number] NAME: CARYL ERNANDEZ ROOM: P114 Age: 37 Sex: M Admission Date: 06/03/2017 : 1980 Attending Physician: Diya Bhat M.D. Admitting Physician: Diya Bhat M.D. Primary Care Physician: Primary Care Physician No HISTORY AND PHYSICAL HISTORY OF PRESENT ILLNESS Caryl is a 37 year old, admitted to [address] [place] [address] with psychotic behavior. He has had numerous admissions to this facility for the same. The patient was seen and history and physical, dated 05/03/2017 was reviewed. This is current. No changes. Please see history and physical, dated 05/03/17. Dictated by... Carmen Ma P.A.-C. for Magdalena Gonzalez/alireza TD: 06/05/2017 12:39 JOB #: [id number] HISTORY AND PHYSICAL Page 1 of 1 X Carmen Ma HISTORY AND PHYSICAL
--- NOTE | ~2017-06-03 | PA ---
Unit #: [id number] #: [id number] [facility]: [facility] [id number] [facility] [address] [place] [address] [id number] MR#: [id number] NAME: CARYL ASTUDILLO ROOM: P114 Age: 37 Sex: M Admission Date: 06/03/2017 : 1980 Date of Assessment: 06/04/2017 Attending Physician: Diya Bhat M.D. Admitting Physician: Diya Bhat M.D. Primary Care Physician: Primary Care Physician No PSYCHIATRIC ASSESSMENT DATE OF SERVICE 06/04/2017. IDENTIFYING DATA Mr. Astudillo is a 37-year-old single male, who is a resident of [place], [place], and is known to me from previous encounter, and was recently discharged from my care and was transferred back to from [facility] on a voluntary basis. CHIEF COMPLAINT "The usual, suicidal, and all thoughts of other things." HISTORY OF PRESENT ILLNESS Mr. Astudillo is a 37-year-old male, who took himself to the emergency room, reporting suicidal ideations, "I do not want to keep going over this stuff." The patient was drifting in and out of sleep and "I have tried everything, I have been hearing voices, that tell me to do things, I'm in danger from the spirits. I do not know what they are, but in danger, and I do not know what I am up against." The patient was seen to be very agitated during assessment and angry about questions being asked. However, it appears that he has long history of chronic mental illness and has supposed to be on psychotropic medication, but has been noncompliant with medications and as such, has been decompensating with increasing depression, anger, agitation, irritability, suicidal ideations, and auditory and visual hallucinations and as such, recommendation for inpatient level of care for safety and stabilization was made, and the patient was transferred to us. SUBSTANCE ABUSE HISTORY The patient denies any alcohol or drug abuse. PAST PSYCHIATRIC HISTORY The patient has a history of inpatient psychiatric hospitalization at [facility] and review of the medical records indicated that he has been diagnosed and treated for schizoaffective disorder and is supposed to be on psychotropic medications including Risperdal and Celexa, but has been noncompliant with medications and as such, has been decompensating. PAST MEDICAL HISTORY The patient's medical history is insignificant. ALLERGIES Unit #: [id number] #: [id number] Patient: CARYL ASTUDILLO Haldol and Flexeril. PERSONAL AND SOCIAL HISTORY This is a 37-year-old male, who reports that he is single, unemployed, homeless, and has poor social support system. MENTAL STATUS EXAMINATION This is a young male, who was casually dressed with fair personal hygiene, appears to be in no acute distress or discomfort. He was awake and alert on interaction with intact orientation. His mood was anxious and depressed with a congruent affect. His speech was slow and restricted in content. His thought processes were disorganized with some looseness of associations and flight of ideas and paranoid ideations and auditory and visual hallucinations. His insight and judgment remain significantly impaired. DIAGNOSTIC IMPRESSION Psychiatric; schizoaffective disorder, bipolar type, most recent episode depressed, recurrent, moderate, with psychosis; cocaine abuse, moderate; benzodiazepine abuse, moderate. Medical: None. Stressors: Moderate psychosocial stressors. TREATMENT PLAN 1. The patient has presented with history of mood disorder and psychosis and has been decompensating and will need inpatient hospitalization for safety and stabilization. We will start him back on his home medications. We will adjust the medications and monitor response. 2. Supportive therapy was provided to the patient. 3. Safe, structured, and nourishing environment will be provided. ESTIMATED LENGTH OF STAY 4 to 5 days. ABILITY TO HELP SELF Limited. WILLINGNESS TO HELP SELF The patient appears to be willing to help self. STRENGTHS 1. Communicative. 2. Cooperative. PROBLEM 1. Chronic dysphoric symptoms. 2. Poor social support system. DISCHARGE CRITERIA This will be contingent upon the patient's ability to show resolution of his depression, anxiety, and psychosis as well as ability to stay safe to himself, particularly after discharge from the hospital. Dictated by... Diya Bhat M.D. IAA/modl Unit #: [id number] #: [id number] Patient: CARYL ASTUDILLO TD: 06/04/2017 10:16 JOB #: [id number] PSYCHIATRIC ASSESSMENT Page 1 of 1 X Diya Bhat MD PSYCHIATRIC ASSESSMENT
== END 2017-06-08 09:52 | disposition home or self-care (01) | DRG 885 ==
LOC: P1S 21:20
DX: F25.0 Schizoaffective disorder, bipolar type (principal); F13.20 Sedative, hypnotic or anxiolytic dependence, uncomplicated; R45.851 Suicidal ideations; F14.20 Cocaine dependence, uncomplicated; Z59.0 Homelessness; Z91.14 Patient's other noncompliance with medication regimen